=== PATIENT | male | born 1970 | race African-American/Black ===

== ENCOUNTER 2017-02-07 09:00 | Outpatient (CLI) | payer BC | END 2017-02-07 09:01 | disposition home or self-care (01) | DX: E11.49 Type 2 diabetes mellitus with other diabetic neurological complication (principal); I10 Essential (primary) hypertension; M17.10 Unilateral primary osteoarthritis, unspecified knee; E66.01 Morbid (severe) obesity due to excess calories ==

== ENCOUNTER 2018-01-16 08:45 | Outpatient (CLI) | payer BC ==
[2018-01-16 12:28] LABS: BASOPHILS # (AUTO) 0.1 10^3/uL (0.0-0.1); EOSINOPHILS # (AUTO) 0.7 10^3/uL (0.0-0.7); EOSINOPHILS % (AUTO) 9.6 %; HGB - HEMOGLOBIN 11.4 g/dL (14.0-18.0); LYMPHOCYTES # (AUTO) 1.8 10^3/uL (1.5-3.5); LYMPHOCYTES % (AUTO) 22.6 %; MEAN CORPUSCULAR HEMOGLOBIN 26.3 pg (27.0-31.0); MEAN CORPUSCULAR HGB CONC 33.4 g/dL (32.0-36.0); MEAN CORPUSCULAR VOLUME 78.9 fL (80.0-94.0); MEAN PLATELET VOLUME 7.7 fL (7.4-11.4); MONOCYTES # (AUTO) 0.7 10^3/uL (0.0-1.0); MONOCYTES % (AUTO) 8.4 %; NEUTROPHILS # (AUTO) 4.6 10^3/uL (1.5-6.6); NEUTROPHILS % (AUTO) 58.4 %; PLT - PLATELET COUNT 318 10^3/uL (130-450); RED BLOOD COUNT 4.32 10^6/uL (4.70-6.10); RED CELL DISTRIBUTION WIDTH 19.8 % (12.0-15.0); WHITE BLOOD COUNT 7.8 x10^3/uL (4.8-10.8)
[2018-01-16 12:43] LABS: ALBUMIN 3.2 g/dL (3.2-5.5); ALBUMIN/GLOBULIN RATIO 0.6 (1.0-2.2); BILIRUBIN,TOTAL 1.4 mg/dL (0.2-1.0); CALCIUM 9.5 mg/dL (8.5-10.3); TOTAL PROTEIN 8.3 g/dL (6.7-8.2)
[2018-01-16 13:24] LABS: HB2 TOTAL 12.5 g/dL; HEMOGLOBIN A1C 0.55 g/dL; HEMOGLOBIN A1C % 6.2 % (4.6-6.2)
== END 2018-01-16 08:46 | disposition home or self-care (01) ==
LOC: LAB.WCP 08:45
PROVIDERS: ATTEND Family Medicine
DX: I10 Essential (primary) hypertension (principal); E11.9 Type 2 diabetes mellitus without complications
CPT/HCPCS: 36415; 80053; 82043; 83036; 85025

== ENCOUNTER 2018-04-24 08:00 | Outpatient (CLI) | payer BC, OTHER ==
[2018-04-24 12:22] LABS: ALBUMIN 4.1 g/dL (3.2-5.5); BILIRUBIN,TOTAL 0.4 mg/dL (0.2-1.0); CALCIUM 9.5 mg/dL (8.5-10.3); TOTAL PROTEIN 8.1 g/dL (6.7-8.2)
[2018-04-24 12:48] LABS: HB2 TOTAL 15.5 g/dL; HEMOGLOBIN A1C 1.38 g/dL; HEMOGLOBIN A1C % 10.3 % (4.6-6.2)
== END 2018-04-24 08:01 | disposition home or self-care (01) ==
LOC: LAB.WCP 08:00
PROVIDERS: ATTEND Family Medicine
DX: E11.9 Type 2 diabetes mellitus without complications (principal)
CPT/HCPCS: 36415; 80053; 82043; 83036

== ENCOUNTER 2018-12-05 08:20 | Outpatient (CLI) | payer BC ==
[2018-12-05 12:32] LABS: BASOPHILS % (AUTO) 0.5 %; EOSINOPHILS % (AUTO) 0.4 %; HGB - HEMOGLOBIN 13.4 g/dL (14.0-18.0); LYMPHOCYTES # (AUTO) 1.9 10^3/uL (1.5-3.5); MEAN CORPUSCULAR HEMOGLOBIN 27.5 pg (27.0-31.0); MEAN CORPUSCULAR HGB CONC 33.5 g/dL (32.0-36.0); MEAN CORPUSCULAR VOLUME 82.2 fL (80.0-94.0); MEAN PLATELET VOLUME 9.6 fL (7.4-11.4); MONOCYTES # (AUTO) 0.5 10^3/uL (0.0-1.0); MONOCYTES % (AUTO) 6.2 %; NEUTROPHILS % (AUTO) 70.9 %; PLT - PLATELET COUNT 245 10^3/uL (130-450); RED BLOOD COUNT 4.88 10^6/uL (4.70-6.10); RED CELL DISTRIBUTION WIDTH 14.4 % (12.0-15.0); WHITE BLOOD COUNT 8.5 x10^3/uL (4.8-10.8)
[2018-12-05 12:43] LABS: ALBUMIN 3.8 g/dL (3.2-5.5); ALBUMIN/GLOBULIN RATIO 1.1 (1.0-2.2); ALKALINE PHOSPHATASE 107 IU/L (42-121); ALT ALANINE AMINOTRANSFERASE 42 IU/L (10-60); AST ASPARTATE AMINOTRANSFERASE 34 IU/L (10-42); BILIRUBIN,TOTAL 0.8 mg/dL (0.2-1.0); BUN - BLOOD UREA NITROGEN 18 mg/dL (6-20); CALCIUM 8.6 mg/dL (8.5-10.3); CARBON DIOXIDE - CO2 23 mmol/L (21-32); CHLORIDE 104 mmol/L (101-111); CHOL/HDL RATIO 5.3 (<5.0); CHOLESTEROL 160 mg/dL; CREATININE 0.9 mg/dL (0.6-1.2); GFR - MDRD 109 (>89); GLUCOSE 241 mg/dL (70-100); HDL CHOLESTEROL 30 mg/dL; LDL CHOLESTEROL,CALCULATED 92 mg/dL; LDL/HDL RATIO 3.1 (<3.6); SODIUM 136 mmol/L (135-145); TOTAL PROTEIN 7.4 g/dL (6.7-8.2); VLDL CHOLESTEROL 38 mg/dL
[2018-12-05 14:48] LABS: HEMOGLOBIN A1C 1.52 g/dL; HEMOGLOBIN A1C % 11.4 % (4.6-6.2)
== END 2018-12-05 23:59 | disposition home or self-care (01) ==
LOC: LAB.WCP 08:20
PROVIDERS: ATTEND Family Medicine
DX: E11.9 Type 2 diabetes mellitus without complications (principal); H69.80 Other specified disorders of Eustachian tube, unspecified ear; I10 Essential (primary) hypertension
CPT/HCPCS: 36415; 80053; 80061; 82043; 83036; 83721; 84443; 85025

== ENCOUNTER 2019-01-29 08:00 | Outpatient (CLI) | payer BC ==
[2019-01-29 13:36] LABS: ALBUMIN 4.2 g/dL (3.2-5.5); ALBUMIN/GLOBULIN RATIO 1.1 (1.0-2.2); BILIRUBIN,TOTAL 0.8 mg/dL (0.2-1.0); CALCIUM 9.4 mg/dL (8.5-10.3)
[2019-01-29 13:46] LABS: MICROALBUM/CREATININE RATIO,UR 253.2 ug/mg (<30.0); MICROALBUMIN,URINE 15.7 mg/dL (0-300.0)
[2019-01-29 13:56] LABS: HEMOGLOBIN A1C 1.33 g/dL; HEMOGLOBIN A1C % 9.8 % (4.6-6.2)
== END 2019-01-29 23:59 ==
LOC: LAB.WCP 08:00
PROVIDERS: ATTEND Family Medicine
DX: E11.9 Type 2 diabetes mellitus without complications (principal)
CPT/HCPCS: 36415; 80053; 82043; 82570; 83036

== ENCOUNTER → 2020-10-07 | Outpatient (CLI) | payer BC ==
[2020-10-07 18:04] LABS: BASOPHILS # (AUTO) 0.1 10^3/uL (0.0-0.1); BASOPHILS % (AUTO) 0.6 %; EOSINOPHILS # (AUTO) 0.2 10^3/uL (0.0-0.7); EOSINOPHILS % (AUTO) 2.7 %; HGB - HEMOGLOBIN 15.1 g/dL (14.0-18.0); LYMPHOCYTES # (AUTO) 1.9 10^3/uL (1.5-3.5); LYMPHOCYTES % (AUTO) 24.4 %; MEAN CORPUSCULAR HEMOGLOBIN 27.2 pg (27.0-31.0); MEAN CORPUSCULAR HGB CONC 31.9 g/dL (32.0-36.0); MEAN CORPUSCULAR VOLUME 85.4 fL (80.0-94.0); MEAN PLATELET VOLUME 11.4 fL (7.4-11.4); MONOCYTES # (AUTO) 0.5 10^3/uL (0.0-1.0); MONOCYTES % (AUTO) 6.5 %; NEUTROPHILS # (AUTO) 5.1 10^3/uL (1.5-6.6); NEUTROPHILS % (AUTO) 65.2 %; PLT - PLATELET COUNT 245 10^3/uL (130-450); RED BLOOD COUNT 5.55 10^6/uL (4.70-6.10); RED CELL DISTRIBUTION WIDTH 14.1 % (12.0-15.0); WHITE BLOOD COUNT 7.9 x10^3/uL (4.8-10.8)
[2020-10-07 18:22] LABS: ALBUMIN 4.2 g/dL (3.2-5.5); ALBUMIN/GLOBULIN RATIO 1.2 (1.0-2.2); ALKALINE PHOSPHATASE 76 IU/L (42-121); ALT ALANINE AMINOTRANSFERASE 34 IU/L (10-60); AST ASPARTATE AMINOTRANSFERASE 25 IU/L (10-42); BILIRUBIN,TOTAL 0.9 mg/dL (0.2-1.0); BUN - BLOOD UREA NITROGEN 23 mg/dL (6-20); CALCIUM 9.1 mg/dL (8.5-10.3); CARBON DIOXIDE - CO2 25 mmol/L (21-32); CHLORIDE 105 mmol/L (101-111); CHOL/HDL RATIO 3.5 (<5.0); CHOLESTEROL 111 mg/dL; CREATININE 0.9 mg/dL (0.6-1.2); GLUCOSE 100 mg/dL (70-100); HDL CHOLESTEROL 32 mg/dL; LDL CHOLESTEROL,CALCULATED 56 mg/dL; LDL/HDL RATIO 1.8 (<3.6); SODIUM 139 mmol/L (135-145); TOTAL PROTEIN 7.8 g/dL (6.7-8.2); VLDL CHOLESTEROL 23 mg/dL
== END ==
LOC: LAB.WCP 08:00
PROVIDERS: ATTEND Physician Assistant Medical
DX: E11.65 Type 2 diabetes mellitus with hyperglycemia (principal); I10 Essential (primary) hypertension; G47.33 Obstructive sleep apnea (adult) (pediatric)
CPT/HCPCS: 36415; 80053; 80061; 82043; 83036; 83721; 84443; 85025

== ENCOUNTER 2020-10-19 09:44 | Outpatient (CLI) | payer OTHER, BC ==
[2020-10-19] MEDS ORDERED: AMINOPHYLLINE 500 MG/20 ML VIAL ONE (10:55)
[2020-10-19] MEDS ORDERED: REGADENOSON 0.4 MG/5 ML SYRINGE IVP ONE (10:55)
--- NOTE | 2020-10-19 11:19 | CARDIAC PROCEDURE NOTE ---
DATE OF SERVICE: 10/19/2020 Physician: Lauren Reeves MD, [facility] INDICATION: Preop evaluation, abnormal EKG. CARDIAC RISK FACTORS: Male gender, morbid obesity, diabetes mellitus, hypertension, family history of heart disease, elevated cholesterol. DESCRIPTION OF PROCEDURE: After signing informed consent, the patient underwent a Lexiscan pharmaceutical stress test with nuclear myocardial perfusion imaging. RESTING HEART RATE: 84. PEAK HEART RATE: 108. RESTING BLOOD PRESSURE: 146/101. PEAK BLOOD PRESSURE: 149/95. Lexiscan was infused per protocol. The patient had brief shortness of breath and nausea. He had no chest pain. Oxygen saturation was 90% to 98% on room air throughout the test. RESTING EKG: Normal sinus rhythm, left atrial enlargement, early repolarization in V1 through V4, inverted T-waves in leads II, III, aVF, and V5 and V6. EKG AT PEAK: No new ST-segment or T-wave changes develop. SUMMARY 1. Abnormal resting EKG. 2. No chest pain occurred during pharmacological stress. 3. No new ST segment or T-wave changes developed, to suggest ischemia by EKG criteria. 4. Nuclear images reported separately and showed: cc: Abdoulaye Ayers MD TD: 10/19/2020 11:08 [facility]
== END 2020-10-19 09:45 | disposition home or self-care (01) ==
LOC: DI 09:44
PROVIDERS: ATTEND Internal Medicine
DX: Z01.810 Encounter for preprocedural cardiovascular examination (principal); R94.31 Abnormal electrocardiogram [ECG] [EKG]
CPT/HCPCS: 78452; 93017

== ENCOUNTER 2021-05-13 09:12 | Outpatient (CLI) | payer BC ==
[2021-05-13 11:47] LABS: BASOPHILS # (AUTO) 0.1 10^3/uL (0.0-0.1); BASOPHILS % (AUTO) 0.8 %; EOSINOPHILS # (AUTO) 0.3 10^3/uL (0.0-0.7); EOSINOPHILS % (AUTO) 4.1 %; HCT - HEMATOCRIT 45.5 % (42.0-52.0); HGB - HEMOGLOBIN 14.5 g/dL (14.0-18.0); LYMPHOCYTES % (AUTO) 26.2 %; MEAN CORPUSCULAR HGB CONC 31.9 g/dL (32.0-36.0); MEAN CORPUSCULAR VOLUME 84.7 fL (80.0-94.0); MEAN PLATELET VOLUME 10.9 fL (7.4-11.4); MONOCYTES # (AUTO) 0.6 10^3/uL (0.0-1.0); MONOCYTES % (AUTO) 7.7 %; NEUTROPHILS # (AUTO) 4.7 10^3/uL (1.5-6.6); NEUTROPHILS % (AUTO) 60.9 %; PLT - PLATELET COUNT 226 10^3/uL (130-450); RED BLOOD COUNT 5.37 10^6/uL (4.70-6.10); RED CELL DISTRIBUTION WIDTH 14.8 % (12.0-15.0); WHITE BLOOD COUNT 7.8 x10^3/uL (4.8-10.8)
[2021-05-13 12:21] LABS: ESTIMATED AVERAGE GLUCOSE 154 mg/dL (70-100)
[2021-05-13 12:31] LABS: ALBUMIN 4.1 g/dL (3.2-5.5); ALBUMIN/GLOBULIN RATIO 1.3 (1.0-2.2); BILIRUBIN,TOTAL 0.7 mg/dL (0.2-1.0); CALCIUM 8.8 mg/dL (8.5-10.3); CREATININE 1.1 mg/dL (0.6-1.2); POTASSIUM 3.9 mmol/L (3.5-5.0); TOTAL PROTEIN 7.3 g/dL (6.7-8.2)
== END 2021-05-13 23:59 | disposition home or self-care (01) ==
LOC: LAB.WCP 09:12
PROVIDERS: ATTEND Internal Medicine
DX: E11.9 Type 2 diabetes mellitus without complications (principal)
CPT/HCPCS: 36415; 80053; 83036; 85025

== ENCOUNTER 2022-09-05 12:07 | Outpatient (CLI) | payer BC ==
[2022-09-05 18:30] LABS: BASOPHILS # (AUTO) 0.1 10^3/uL (0.0-0.1); BASOPHILS % (AUTO) 0.7 %; EOSINOPHILS # (AUTO) 0.2 10^3/uL (0.0-0.7); EOSINOPHILS % (AUTO) 2.3 %; HCT - HEMATOCRIT 46.6 % (42.0-52.0); HGB - HEMOGLOBIN 14.6 g/dL (14.0-18.0); LYMPHOCYTES % (AUTO) 26.2 %; MEAN CORPUSCULAR HEMOGLOBIN 26.7 pg (27.0-31.0); MEAN CORPUSCULAR HGB CONC 31.3 g/dL (32.0-36.0); MEAN CORPUSCULAR VOLUME 85.2 fL (80.0-94.0); MEAN PLATELET VOLUME 10.8 fL (7.4-11.4); MONOCYTES # (AUTO) 0.6 10^3/uL (0.0-1.0); MONOCYTES % (AUTO) 8.5 %; NEUTROPHILS # (AUTO) 4.7 10^3/uL (1.5-6.6); PLT - PLATELET COUNT 242 10^3/uL (130-450); RED BLOOD COUNT 5.47 10^6/uL (4.70-6.10); RED CELL DISTRIBUTION WIDTH 14.1 % (12.0-15.0); WHITE BLOOD COUNT 7.5 x10^3/uL (4.8-10.8)
[2022-09-05 18:47] LABS: CREATININE,URINE 51.6 mg/dL; MICROALBUM/CREATININE RATIO,UR 133.7 ug/mg (<30.0); MICROALBUMIN,URINE 6.9 mg/dL (0-300.0)
[2022-09-05 18:58] LABS: ALBUMIN 4.2 g/dL (3.2-5.5); ALBUMIN/GLOBULIN RATIO 1.5 (1.0-2.2); ALKALINE PHOSPHATASE 80 IU/L (42-121); ALT ALANINE AMINOTRANSFERASE 28 IU/L (10-60); AST ASPARTATE AMINOTRANSFERASE 26 IU/L (10-42); BILIRUBIN,TOTAL 0.6 mg/dL (0.2-1.0); BUN - BLOOD UREA NITROGEN 17 mg/dL (6-20); CALCIUM 9.2 mg/dL (8.5-10.3); CARBON DIOXIDE - CO2 25 mmol/L (21-32); CHLORIDE 106 mmol/L (101-111); CHOLESTEROL 100 mg/dL; CREATININE 0.9 mg/dL (0.6-1.2); GFR - MDRD 107 (>89); GLUCOSE 109 mg/dL (70-100); HDL CHOLESTEROL 33 mg/dL; LDL CHOLESTEROL,CALCULATED 45 mg/dL; LDL/HDL RATIO 1.4 (<3.6); POTASSIUM 3.9 mmol/L (3.5-5.0); SODIUM 139 mmol/L (135-145); TRIGLYCERIDES 110 mg/dL; VLDL CHOLESTEROL 22 mg/dL
[2022-09-05 20:18] LABS: ESTIMATED AVERAGE GLUCOSE 189 mg/dL (70-100); HEMOGLOBIN A1c% 8.2 % (4.27-6.07)
== END 2022-09-05 12:08 | disposition home or self-care (01) ==
LOC: LAB.N 12:07
PROVIDERS: ATTEND Internal Medicine
DX: I10 Essential (primary) hypertension (principal); E78.5 Hyperlipidemia, unspecified; E11.9 Type 2 diabetes mellitus without complications; Z12.5 Encounter for screening for malignant neoplasm of prostate
CPT/HCPCS: 36415; 80053; 80061; 82043; 82570; 83036; 83721; 84153; 85025

== ENCOUNTER 2023-01-19 14:12 | Outpatient (CLI) | payer BC ==
[2023-01-19 15:10] VITALS: BP 200/110
--- NOTE | 2023-01-19 15:10 | SLEEP CARE CONSULTATION ---
Information from patient questionnaire entered by Myriam Blanco. I have reviewed and concur with the information entered by Myriam Blanco. This document represents the service I personally performed and the decisions made by me, Miya Ryna ARNP. History of Present Illness Service Date and Time: 01/19/2023 1412 Reason for Visit: New patient, Previously diagnosed sleep apnea Chief Complaint: reports: Insomnia, Unrefreshed sleep, Snoring, Observed pauses in breathing, Fatigue Date of Onset: over 10 years Usual bedtime: 730-830PM Time it takes to fall asleep: 45-60MIN Snores at night: Yes Observed to quit breathing while asleep: No Sleeps alone due to snoring: No Number of times waking at night: 3-4 Reasons for waking at night: reports: Snoring, Bathroom, Other (UNKNOWN). denies: Choking, Gasping for air Toss, Turn, or Twitch while sleeping: No Recalls having dreams: Yes Usually gets out of bed at: 0200 Feels refreshed in the morning: No Morning headache: No Sleepy or fatigued during the day: No Ever fallen asleep while driving: Yes (drowsy driving, no accident) Takes day naps: No Dreams during day naps: No Prior sleep studies: Yes Additional HPI information: I had the pleasure of seeing ALEJANDRO GONZALEZ today regarding the possibility of him having a sleep disorder. He was previously diagnosed with sleep apnea, last seen in this office in 2012 but tells me that he was never set up with a CPAP. His current complaints are fatigue, insomnia, observed pauses in breathing, snoring and unrefreshed sleep. - Parasomnia Symptoms Ever been unable to move upon waking from sleep: No Walks in sleep: No Talks in sleep: Yes Ever acted out dreams in sleep: Yes (moving in bed per his ) Ever felt weak in the knees when startled or emotional: No Bothered by creepy, crawly, restless sensations in legs: No Problems with memory or concentration: No Subjective Initial [place] Sleepiness Scale score: 14 (01/19/23) Past Medical History Past Medical History: reports: Hypertension, Diabetes, Arrythmia (Aflutter found in ED), Asthma, Other (spinal replacement; left shoulder replacement) Social History The patient's occupation is a [employer]. Patient is and lives in [place]. Have you smoked in the past 12 months: No Alcohol use: No Caffeine use: Yes Caffeine amount and frequency: 1CUP 3-4 X WEEK Family History Family history of sleep disordered breathing: No Allergies and Home Medications Known drug allergies: Yes (CEPHALEXIN; fluticasone) Drug allergies reviewed: Yes Home medication list reviewed: Yes (see list EMR for updated list) Allergy and home medication list: Allergies fluticasone propionate * [From Flonase] Allergy (Verified 01/18/23 14:29) Review of Systems Weight gain over past 5 years: 40LBS Cardiovascular: reports: high blood pressure, irregular heart rate or pulse, leg or foot swelling, have to sleep sitting up Respiratory: reports: shortness of breath Gastrointestinal: denies: heartburn Neurological: denies: headaches Psychiatric: denies: anxiety, depression Ear/Nose/Throat: reports: nasal congestion, sinus problems, dry mouth/throat. denies: tonsillectomy Musculoskeletal: reports: joint pain, back pain, mobility problems Immunologic: reports: sneezing, allergies to food or environment Physical Exam Vital signs obtained and entered by: MYRIAM Cheatham MA Blood Pressure: 200/110 (LEFT ARM) Cuff size: long Heart Rate: 101 O2 Saturation: 95 Height: 6 ft 3 in Weight: 417 lb Body Mass Index: 52.1 BMI Classification: Morbidly Obese Neck circumference: 22 Mouth and throat: narrow oropharynx Soft palate: long Hard palate: normal Uvula: normal Uvula visualization: 25% Mallampati Class III Tongue: enlarged in size with teeth blevins on lateral edges Tonsils: small Neck: normal w/o lymphadenopathy or thyromegaly Heart: regular rate and rhythm Lungs: clear bilaterally Impression and Plan 1. Suspected Obstructive Sleep Apnea-Hypopnea Syndrome, as previously diagnosed and as suggested by a history of loud and irregular snoring, observed cessation of breath while asleep, frequent awakening during the night, unrefreshed sleep, and excessive daytime sleepiness. I recommend proceeding to polysomnography to confirm the diagnosis and to assess severity. If the patient has significant sleep disordered breathing, a manual CPAP titration study will also be performed to find the optimal treatment pressure. I informed the patient of what the sleep studies involve and after some discussion, obtained agreement to proceed. The pathophysiology of obstructive sleep apnea-hypopnea syndrome was discussed with the patient and health risks of cardiovascular and cerebrovascular disease if not treated. Risks of drowsy driving discussed in detail and patient advised to avoid long distance driving and to jawbone puller at the first sign of drowsiness. Patient agreed to plan. * Schedule polysomnography to verify diagnosis and severity * Avoid long distance driving or driving when feeling sleepy. * Avoid alcohol, sedative and muscle relaxant around bedtime. * Attempt to lose weight. * Review instructions provided by trained office staff on how to prepare for the sleep study. * Return for follow-up after sleep study completed. Counseling Topics: Weight loss health impact Visit Type: In Office Time Spent with Patient (minutes): 38 Provider Statement: I spent 100% of the Face to Face Visit with the patient with greater than 50% spent counseling the patient and coordination of care.
== END 2023-01-19 14:13 | disposition home or self-care (01) ==
LOC: SC 14:12
PROVIDERS: ATTEND Nurse Practitioner Family
DX: G47.33 Obstructive sleep apnea (adult) (pediatric) (principal); E66.01 Morbid (severe) obesity due to excess calories; Z68.43 Body mass index [BMI] 50.0-59.9, adult
CPT/HCPCS: 99203; 99212

== ENCOUNTER 2023-02-06 14:20 | Outpatient (CLI) | payer BC | END 2023-02-06 14:21 | disposition home or self-care (01) | LOC: SC 14:20 | PROVIDERS: ATTEND Nurse Practitioner Family | DX: G47.33 Obstructive sleep apnea (adult) (pediatric) (principal); R09.02 Hypoxemia; E66.01 Morbid (severe) obesity due to excess calories; Z68.43 Body mass index [BMI] 50.0-59.9, adult | CPT/HCPCS: 95806 ==

== ENCOUNTER 2023-03-12 08:57 | Outpatient (CLI) | payer BC, OTHER ==
[2023-03-13 08:19] VITALS: BP 150/100
--- NOTE | 2023-03-13 08:19 | SLEEP CARE CONSULTATION ---
Information from patient questionnaire entered by Myriam Blanco. I have reviewed and concur with the information entered by Myriam Blanco. This document represents the service I personally performed and the decisions made by me, Barb Jaeger MD, [facility]. History of Present Illness Service Date and Time: 03/12/2023 0857 Initial [place] Sleepiness Scale score: 14 (01/19/23) Current [place] Sleepiness Scale score: 8 (03/12/23) Additional HPI information: Mr. Quintanilla returned for follow up of the sleep study he had on . The polysomnography showed very severe obstructive sleep apnea-hypopnea, with an AHI of 68.5/hr and tali SaO2 of 65%. During the study, the patient had 280 apneas (280 obstructive, 0 central, 0 mixed) and 397 hypopneas. The longest episode lasted 81.0 seconds. The patient did not sleep supine during this study. Hypoxemia moderate, with the lowest oxygen saturation of 65 % and 155.5 minutes with SaO2 under 90%. Baseline oxygen saturation was normal (Average oxygen saturation was 91%). The patient was informed of these findings. I explained to him the pathophysiology behind obstructive sleep apnea. We then spent quite a bit of time discussing different treatment options. For mild obstructive sleep apnea, surgery and oral appliance are alternatives to nasal CPAP therapy but in moderate or severe cases, nasal CPAP is the most effective and reliable treatment. Weight loss in an obese individual is strongly recommended. After some discussion, he opted to go with the nasal CPAP therapy. I explained to him how CPAP machine works and what to expect when using the machine. He was actually diagnosed 10 years ago at [facility] but lost to follow up (he had to do the sleep study there because his weight exceeded our bed capacity of 400 lbs). Sleep Study - Results Type of Sleep Study: Home sleep study (COMPLETED 02/06/23) Prior sleep studies: Yes Allergies and Home Medications Drug allergies reviewed: Yes Home medication list reviewed: Yes Allergy and home medication list: Allergies cephalexin Allergy (Verified 03/09/23 13:57) fluticasone propionate * [From Flonase] Allergy (Verified 03/09/23 13:57) Review of Systems Review of systems same as previous: Yes Physical Exam Vital signs obtained and entered by: MYRIAM Cheatham MA Blood Pressure: 150/100 (LEFT ARM) Cuff size: long Heart Rate: 82 O2 Saturation: 93 Height: 6 ft 3 in Weight: 420 lb 3.2 oz Body Mass Index: 52.5 BMI Classification: Morbidly Obese Impression and Plan IMPRESSION: 1. Obstructive Sleep Apnea-Hypopnea Syndrome, very severe, associated with moderate hypoxemia. Obviously, this is the cause of the patients symptoms of unrefreshed sleep, and excessive daytime sleepiness. As mentioned above, the patient will be started on an autoCPAP set at 8 - 20 cmH2O. Depending on his response and compliance he may be brought back for an overnight CPAP titration study. PLAN: 1. Prescription made for an autoCPAP, heated humidifier, and related supplies. 2. Attempt to lose weight and avoid alcohol consumption near bedtime. 3. The patient is again cautioned about driving until his sleepiness completely resolves on the CPAP therapy. 4. Return for follow up after one month of using the CPAP. Counseling Topics: Weight control Prescriptions: Auto CPAP Follow up with Sleep Care in: 1-2 months Visit Type: In Office Time Spent with Patient (minutes): 15 Provider Statement: I spent 100% of the Face to Face Visit with the patient with greater than 50% spent counseling the patient and coordination of care.
== END 2023-03-12 08:58 | disposition home or self-care (01) ==
LOC: SC 08:57
PROVIDERS: ATTEND Nurse Practitioner Family
DX: G47.33 Obstructive sleep apnea (adult) (pediatric) (principal); E66.01 Morbid (severe) obesity due to excess calories; Z68.43 Body mass index [BMI] 50.0-59.9, adult
CPT/HCPCS: 99212

== ENCOUNTER 2023-05-10 15:55 | Outpatient (CLI) | payer BC ==
--- NOTE | 2023-05-10 09:07 | SLEEP CARE CONSULTATION ---
Information from patient questionnaire entered by Myriam Blanco. I have reviewed and concur with the information entered by Myriam Blanco. This document represents the service I personally performed and the decisions made by , Miya Ryan ARNP. History of Present Illness Service Date and Time: 05/10/2023 0840 Previous diagnosis: Very Severe, Obstructive Sleep Apnea-Hypopnea Syndrome AHI: 68.5 (in 2022) Reason for follow up: first compliance Equipment type: CPAP (RESMED 11; s/u 02/2023) Equipment obtained from: Other ([facility]; got supplies) Mask style: Nasal Backup mask available: Yes (other mask) Last cushion change: over a month Prior sleep studies: Yes Type of Sleep Study: Home sleep study (COMPLETED 02/06/23) HPI additional information: ALEJANDRO GONZALEZ was diagnosed to have very severe, AHI 68.5, obstructive sleep apnea-hypopnea syndrome and returns via video telehealth visit today for CPAP therapy first compliance follow-up. Sleep Study - Results Type of Sleep Study: Home sleep study (COMPLETED 02/06/23) Prior sleep studies: Yes CPAP Compliance Data - Data Reviewed with Patient Average duration of nightly device use: 5 HRS 23 MIN Compliance rate %: 97 (04/08/23-05/07/23; 30/30 days used) Current pressure setting (cmH2O): 8-20 (median 10.7, avg 12.7, max 13.8) Average residual AHI: 2.0 Central apnea: 0 Obstructive apnea: 0.6 Hypopnea: 1.4 Average large leak: 7.7 L/min Subjective Patient concerns: denies: aerophagia, mask discomfort, air blowing in eyes, mask leak noise, condensation in mask/hose, nasal congestion, dry mouth, nose, throat, epistaxis Observed to snore while using device: No Current pressure setting perceived as: comfortable On therapy, patient: reports: sleeping better, awakening more refreshed, being more awake and alert during the day, more rested overall. denies: drowsiness while driving Initial [place] Sleepiness Scale score: 14 (01/19/23) Current [place] Sleepiness Scale score: 7 (05/10/23) Allergies and Home Medications Known drug allergies: Yes (as listed) Drug allergies reviewed: Yes Home medication list reviewed: Yes (no changes) Allergy and home medication list: Allergies cephalexin Allergy (Verified 05/09/23 14:43) fluticasone propionate * [From Flonase] Allergy (Verified 05/09/23 14:43) Review of Systems Review of systems same as previous: Yes (no changes) Physical Exam Vital signs obtained and entered by: MYRIAM Cheatham MA Height: 6 ft 3.5 in (per pt) Weight: 405 lb (per pt) Body Mass Index: 49.9 BMI Classification: Morbidly Obese Impression and Plan 1. Obstructive Sleep Apnea-Hypopnea Syndrome, very severe, with good treatment compliance and good apnea control. On CPAP therapy, the patient has better sleep quality and is more rested overall. Patient has significant improvement of their sleep apnea and is satisfied with current CPAP therapy. Patient started with a fullface mask but he got so much leaking around the mask that it was blowing up into his eyes and waking him up. He changed to a nasal cushion mask and finds it much more comfortable with less leaks. The patients pressure will be changed to autoCPAP 10-14 cmH20 to reflect pressure being used. Patient advised to contact me if pressure change is uncomfortable so that it can be adjusted. Goals for apnea control discussed. Patient's apnea severity and rationale for treatment to reduce apnea, improve sleep quality and reduce cardiovascular and cerebrovascular events was reviewed. I also reviewed the benefit of consistent device use of CPAP for hypertension, arrhythmia and diabetes. 2. Obesity, unspecified. Currently patients BMI is 49.9. Obesity increases the risk of apnea, CPAP pressure requirements and overall health risks especially cardiovascular and diabetes. Thus patient is advised to lose weight. * Change auto CPAP pressure to 10-14 cmH2O * Notify me if snoring with mask or feeling that the pressure is too much or too little * Attempt to lose weight * Call this office if any problems using CPAP * Return for follow up in 1-2 months, or sooner if concerns arise Counseling Topics: Spare mask, Weight loss health impact Visit Type: Telehealth Video Video Type: Doximity Patient Location: Home Location of Provider: Office Patient agrees and consents to this telehealth visit type: Yes Patient agrees to have their insurance billed: Yes Time Spent with Patient (minutes): 14 Provider Statement: I spent 100% of the Telehealth Video Call with the patient with greater than 50% spent counseling the patient and coordination of care.
== END 2023-05-10 15:56 | disposition home or self-care (01) ==
LOC: SC 15:55
PROVIDERS: ATTEND Nurse Practitioner Family
DX: G47.33 Obstructive sleep apnea (adult) (pediatric) (principal); E66.01 Morbid (severe) obesity due to excess calories; Z68.42 Body mass index [BMI] 45.0-49.9, adult

== ENCOUNTER 2023-08-03 16:07 | Outpatient (CLI) | payer BC ==
--- NOTE | 2023-08-03 16:03 | SLEEP CARE CONSULTATION ---
Information from patient questionnaire entered by Myriam Blanco. I have reviewed and concur with the information entered by Myriam Blanco. This document represents the service I personally performed and the decisions made by me, Miya Ryan ARNP. History of Present Illness Service Date and Time: 08/03/2023 1600 Previous diagnosis: Very Severe, Obstructive Sleep Apnea-Hypopnea Syndrome AHI: 68.5 (in 2022) Reason for follow up: other (2MONTH F/U) Equipment type: CPAP (RESMED 11; s/u 02/2023) Equipment obtained from: Other ([facility]; getting supplies) Mask style: Nasal pillows Backup mask available: Yes Last cushion change: couple weeks Prior sleep studies: Yes Type of Sleep Study: Home sleep study (COMPLETED 02/06/23) HPI additional information: ALEJANDRO GONZALEZ was diagnosed to have very severe, AHI 68.5, obstructive sleep apnea-hypopnea syndrome and returns via video telehealth visit today for CPAP therapy two month follow-up. Sleep Study - Results Type of Sleep Study: Home sleep study (COMPLETED 02/06/23) Prior sleep studies: Yes CPAP Compliance Data - Data Reviewed with Patient Average duration of nightly device use: 5 HRS 57 MINS Compliance rate %: 93 (06/02/23-07/31/23; 59/60 days used) Current pressure setting (cmH2O): 10-14 Average residual AHI: 1.7 Central apnea: 0 Obstructive apnea: 0.5 Hypopnea: 1.1 Average large leak: 4.4 L/min Subjective Patient concerns: denies: aerophagia, mask discomfort, air blowing in eyes, mask leak noise, condensation in mask/hose, nasal congestion, dry mouth, nose, throat, epistaxis Observed to snore while using device: No Current pressure setting perceived as: comfortable On therapy, patient: reports: sleeping better, awakening more refreshed, being more awake and alert during the day, more rested overall. denies: drowsiness while driving Initial [place] Sleepiness Scale score: 14 (01/19/23) Current [place] Sleepiness Scale score: 3 (08/03/23) Allergies and Home Medications Known drug allergies: Yes (as listed) Drug allergies reviewed: Yes Home medication list reviewed: Yes (no changes) Allergy and home medication list: Allergies cephalexin Allergy (Verified 08/02/23 16:30) fluticasone propionate * [From Flonase] Allergy (Verified 08/02/23 16:30) Review of Systems Review of systems same as previous: Yes (no changes) Physical Exam Vital signs obtained and entered by: MYRIAM Cheatham MA Height: 6 ft 3.5 in (per pt) Weight: 405 lb (PER PT) Body Mass Index: 49.9 BMI Classification: Morbidly Obese Impression and Plan 1. Obstructive Sleep Apnea-Hypopnea Syndrome, very severe, with good treatment compliance and good apnea control. On CPAP therapy, the patient has better sleep quality and is more rested overall. Patient has significant improvement of their sleep apnea and is satisfied with current CPAP therapy. Patient denies problems with oral dryness, nasal congestion, epistaxis, skin irritation or aerophagia. Patient's apnea severity and rationale for treatment to reduce apnea, improve sleep quality and reduce cardiovascular and cerebrovascular events was reviewed. I also reviewed the benefit of consistent device use of CPAP for hypertension, arrhythmia and diabetes. 2. Obesity, unspecified. Currently patients BMI is 49.9. Obesity increases the risk of apnea, CPAP pressure requirements and overall health risks especially cardiovascular and diabetes. Thus patient is advised to lose weight. * Continue auto CPAP pressure at 10-14 cmH2O * Notify me if snoring with mask or feeling that the pressure is too much or too little * Attempt to lose weight * Call this office if any problems using CPAP * Return for follow up in 3 months, or sooner if concerns arise Counseling Topics: Spare mask, Weight loss health impact Visit Type: Telehealth Video Video Type: Doximity Patient Location: Home Location of Provider: Office Patient agrees and consents to this telehealth visit type: Yes Patient agrees to have their insurance billed: Yes Time Spent with Patient (minutes): 12 Provider Statement: I spent 100% of the Telehealth Video Call with the patient with greater than 50% spent counseling the patient and coordination of care.
== END 2023-08-03 16:08 | disposition home or self-care (01) ==
LOC: SC 16:07
PROVIDERS: ATTEND Nurse Practitioner Family
DX: G47.33 Obstructive sleep apnea (adult) (pediatric) (principal); E66.01 Morbid (severe) obesity due to excess calories; Z68.42 Body mass index [BMI] 45.0-49.9, adult

== ENCOUNTER 2023-09-03 08:27 | Outpatient (CLI) | payer OTHER ==
[2023-09-03 12:29] LABS: BASOPHILS # (AUTO) 0.1 10^3/uL (0.0-0.1); BASOPHILS % (AUTO) 0.6 %; EOSINOPHILS # (AUTO) 0.2 10^3/uL (0.0-0.7); EOSINOPHILS % (AUTO) 2.7 %; HGB - HEMOGLOBIN 14.2 g/dL (14.0-18.0); LYMPHOCYTES # (AUTO) 1.9 10^3/uL (1.5-3.5); LYMPHOCYTES % (AUTO) 22.3 %; MEAN CORPUSCULAR HEMOGLOBIN 26.9 pg (27.0-31.0); MEAN CORPUSCULAR HGB CONC 31.6 g/dL (32.0-36.0); MEAN CORPUSCULAR VOLUME 85.2 fL (80.0-94.0); MEAN PLATELET VOLUME 11.3 fL (7.4-11.4); MONOCYTES # (AUTO) 0.7 10^3/uL (0.0-1.0); MONOCYTES % (AUTO) 8.4 %; NEUTROPHILS # (AUTO) 5.6 10^3/uL (1.5-6.6); NEUTROPHILS % (AUTO) 65.6 %; PLT - PLATELET COUNT 273 10^3/uL (130-450); RED BLOOD COUNT 5.28 10^6/uL (4.70-6.10); WHITE BLOOD COUNT 8.6 x10^3/uL (4.8-10.8)
[2023-09-03 12:48] LABS: ESTIMATED AVERAGE GLUCOSE 189 mg/dL (70-100); HEMOGLOBIN A1c% 8.2 % (4.27-6.07)
[2023-09-03 12:54] LABS: ALBUMIN 4.3 g/dL (3.2-5.5); ALBUMIN/GLOBULIN RATIO 1.3 (1.0-2.2); ALKALINE PHOSPHATASE 100 IU/L (42-121); ALT ALANINE AMINOTRANSFERASE 25 IU/L (10-60); AST ASPARTATE AMINOTRANSFERASE 23 IU/L (10-42); BILIRUBIN,TOTAL 0.5 mg/dL (0.2-1.0); BUN - BLOOD UREA NITROGEN 18 mg/dL (6-20); CALCIUM 9.2 mg/dL (8.5-10.3); CARBON DIOXIDE - CO2 26 mmol/L (21-32); CHLORIDE 105 mmol/L (101-111); CHOL/HDL RATIO 3.1 (<5.0); CHOLESTEROL 98 mg/dL; CREATININE 0.9 mg/dL (0.6-1.3); GFR - MDRD 107 (>89); GLUCOSE 86 mg/dL (74-104); HDL CHOLESTEROL 32 mg/dL; LDL CHOLESTEROL,CALCULATED 41 mg/dL; LDL/HDL RATIO 1.3 (<3.6); POTASSIUM 3.4 mmol/L (3.5-4.5); SODIUM 139 mmol/L (135-145); TOTAL PROTEIN 7.5 g/dL (6.4-8.9); TRIGLYCERIDES 127 mg/dL (48-352); VLDL CHOLESTEROL 25 mg/dL
[2023-09-03 12:59] LABS: THYROID STIMULATING HORMONE 1.89 uIU/mL (0.34-5.60)
[2023-09-03 21:08] LABS: CREATININE,URINE 96.9 mg/dL; MICROALBUM/CREATININE RATIO,UR 219.8 ug/mg (<30.0); MICROALBUMIN,URINE 21.3 mg/dL
== END 2023-09-03 08:28 | disposition home or self-care (01) ==
LOC: LAB.N 08:27
PROVIDERS: ATTEND Internal Medicine
DX: E11.9 Type 2 diabetes mellitus without complications (principal); E78.5 Hyperlipidemia, unspecified; I48.92 Unspecified atrial flutter
CPT/HCPCS: 36415; 80053; 80061; 82043; 82570; 83036; 83721; 84443; 85025

== ENCOUNTER 2023-11-02 10:09 | Outpatient (CLI) | payer BC ==
--- NOTE | 2023-11-02 08:54 | SLEEP CARE CONSULTATION ---
Information from patient questionnaire entered by Myriam Blanco. I have reviewed and concur with the information entered by Myriam Blanco. This document represents the service I personally performed and the decisions made by me, Miya Ryan ARNP. History of Present Illness Service Date and Time: 11/02/2023 0840 Previous diagnosis: Very Severe, Obstructive Sleep Apnea-Hypopnea Syndrome AHI: 68.5 (in 2022) Reason for follow up: three month (F/U) Equipment type: CPAP (RESMED 11; s/u 02/2023) Equipment obtained from: Other ([facility]; getting supplies) Mask style: Nasal pillows Backup mask available: Yes (a full face mask) Last cushion change: 1 month Prior sleep studies: Yes Type of Sleep Study: Home sleep study (COMPLETED 02/06/23) HPI additional information: ALEJANDRO GONZALEZ was diagnosed to have very severe, AHI 68.5, obstructive sleep apnea-hypopnea syndrome and returned today via video appointment for CPAP therapy three month follow-up. Sleep Study - Results Type of Sleep Study: Home sleep study (COMPLETED 02/06/23) Prior sleep studies: Yes CPAP Compliance Data - Data Reviewed with Patient Average duration of nightly device use: 5 hours 59 minutes Compliance rate %: 98 (90/90 days used) Current pressure setting (cmH2O): 10-14 Average residual AHI: 1.5 Central apnea: 0 Obstructive apnea: 0.4 Average large leak: 5 L/min Subjective Patient concerns: reports: nasal congestion (has "bad sinuses and allergies"). denies: aerophagia, mask discomfort, air blowing in eyes, mask leak noise, condensation in mask/hose, dry mouth, nose, throat, epistaxis Observed to snore while using device: No Current pressure setting perceived as: comfortable On therapy, patient: reports: sleeping better, awakening more refreshed, being more awake and alert during the day, more rested overall. denies: drowsiness while driving Initial [place] Sleepiness Scale score: 14 (01/19/23) Current [place] Sleepiness Scale score: 8 (11/02/23) Allergies and Home Medications Known drug allergies: Yes (as listed) Drug allergies reviewed: Yes Home medication list reviewed: Yes (Potassium) Allergy and home medication list: Allergies cephalexin Allergy (Verified 10/31/23 11:08) fluticasone propionate * [From Flonase] Allergy (Verified 10/31/23 11:08) Review of Systems Review of systems same as previous: Yes (NO CHANGE) Physical Exam Vital signs obtained and entered by: MYRIAM Cheatham MA Height: 6 ft 2.5 in (per pt) Weight: 415 lb (PER PT) Weight change since last visit: 10 lb gain Body Mass Index: 52.5 BMI Classification: Morbidly Obese Impression and Plan 1. Obstructive Sleep Apnea-Hypopnea Syndrome, very severe, with good treatment compliance and good apnea control. On CPAP therapy, the patient has better sleep quality and is more rested overall. Patient has significant improvement of their sleep apnea and is satisfied with current CPAP therapy. He is really liking the nasal pillows mask and feels it is. All the difference. The pressure is comfortable as it is set at this time as well. Patient denies problems with oral dryness, nasal congestion, epistaxis, skin irritation or aerophagia. We will follow-up with him in a year. Patient's apnea severity and rationale for treatment to reduce apnea, improve sleep quality and reduce cardiovascular and cerebrovascular events was reviewed. I also reviewed the benefit of consistent device use of CPAP for hypertension, arrhythmia and diabetes. 2. Obesity, unspecified. Currently patients BMI is 52.5. He has gained weight. Obesity increases the risk of apnea, CPAP pressure requirements and overall health risks especially cardiovascular and diabetes. Thus patient is advised to lose weight. * Continue auto CPAP pressure at 10-14 cmH2O * Notify me if snoring with mask or feeling that the pressure is too much or too little * Attempt to lose weight * Call this office if any problems using CPAP * Return for follow up in 12 months, or sooner if concerns arise Counseling Topics: Spare mask, Weight loss health impact Follow up with Sleep Care in: 1 year Visit Type: Telehealth Video Video Type: Doximity Patient Location: Home Location of Provider: Office Patient agrees and consents to this telehealth visit type: Yes Patient agrees to have their insurance billed: Yes Time Spent with Patient (minutes): 15 Provider Statement: I spent 100% of the Telehealth Video Call with the patient with greater than 50% spent counseling the patient and coordination of care.
== END 2023-11-02 10:10 | disposition home or self-care (01) ==
LOC: SC 10:09
PROVIDERS: ATTEND Nurse Practitioner Family
DX: G47.33 Obstructive sleep apnea (adult) (pediatric) (principal); E66.01 Morbid (severe) obesity due to excess calories; Z68.43 Body mass index [BMI] 50.0-59.9, adult

== ENCOUNTER 2024-03-04 08:43 | Outpatient (CLI) | payer BC, OTHER ==
[2024-03-04 12:16] LABS: ESTIMATED AVERAGE GLUCOSE 309 mg/dL (70-100); HEMOGLOBIN A1c% 12.4 % (4.27-6.07)
[2024-03-04 12:23] LABS: CALCIUM 9.5 mg/dL (8.5-10.3); POTASSIUM 4.3 mmol/L (3.5-4.5)
[2024-03-04 12:37] LABS: CREATININE,URINE 39.3 mg/dL; MICROALBUM/CREATININE RATIO,UR 554.7 ug/mg (<30.0); MICROALBUMIN,URINE 21.8 mg/dL
== END 2024-03-04 08:44 | disposition home or self-care (01) ==
LOC: LAB.N 08:43
PROVIDERS: ATTEND Internal Medicine
DX: E11.9 Type 2 diabetes mellitus without complications (principal)
CPT/HCPCS: 36415; 80048; 82043; 82570; 83036

== ENCOUNTER 2024-07-21 08:03 | Outpatient (CLI) | payer OTHER ==
[2024-07-21 12:25] LABS: ESTIMATED AVERAGE GLUCOSE 286 mg/dL (70-100); HEMOGLOBIN A1c% 11.6 % (4.27-6.07)
[2024-07-21 12:29] LABS: ALT ALANINE AMINOTRANSFERASE 31 IU/L (10-60); BUN - BLOOD UREA NITROGEN 16 mg/dL (6-20); CARBON DIOXIDE - CO2 22 mmol/L (21-32); CHLORIDE 105 mmol/L (101-111); CHOL/HDL RATIO 4.3 (<5.0); CHOLESTEROL 113 mg/dL; CREATININE 0.9 mg/dL (0.6-1.3); GFR - MDRD 106 (>89); GLUCOSE 241 mg/dL (74-104); HDL CHOLESTEROL 26 mg/dL; LDL CHOLESTEROL,CALCULATED 32 mg/dL; LDL/HDL RATIO 1.2 (<3.6); POTASSIUM 3.8 mmol/L (3.5-4.5); SODIUM 135 mmol/L (135-145); TRIGLYCERIDES 273 mg/dL; VLDL CHOLESTEROL 55 mg/dL
== END 2024-07-21 08:04 | disposition home or self-care (01) ==
LOC: LAB.N 08:03
PROVIDERS: ATTEND Internal Medicine
DX: E11.9 Type 2 diabetes mellitus without complications (principal); Z12.5 Encounter for screening for malignant neoplasm of prostate; E78.5 Hyperlipidemia, unspecified
CPT/HCPCS: 36415; 80048; 80061; 83036; 83721; 84153; 84460